=== PATIENT | male | born 1960 | race African-American/Black ===

== ENCOUNTER 2018-02-17 09:38 | Emergency (ER) | payer MEDICAID, OTHER ==
[~2018-02-17] VITALS: Ht 185.4 cm; Wt 81.6 kg
[~2018-02-17 09:38] MED LIST: ENAL-3; HYDR12.527; METF-490
[2018-02-17 10:05] VITALS: BP 131/83
[2018-02-17] MEDS ORDERED: KETOROLAC TROMETH 60MG/2ML VIAL IM ONE (11:45)
== END 2018-02-17 11:59 | disposition home or self-care (01) ==
LOC: ER 09:38
DX: S46.912A Strain of unspecified muscle, fascia and tendon at shoulder and upper arm level, left arm, initial encounter (principal); E11.9 Type 2 diabetes mellitus without complications; F17.210 Nicotine dependence, cigarettes, uncomplicated; I10 Essential (primary) hypertension; W19.XXXA Unspecified fall, initial encounter; Y93.89 Activity, other specified; Y92.89 Other specified places as the place of occurrence of the external cause; Y99.8 Other external cause status
CPT/HCPCS: 73030; 82962; 96372; 99284; J1885

== ENCOUNTER 2018-07-04 10:57 | Emergency (ER) | payer MEDICAID ==
[~2018-07-04] VITALS: Ht 185.4 cm; Wt 79.4 kg
[2018-07-04 11:12] VITALS: BP 135/94
== END 2018-07-04 11:50 | disposition home or self-care (01) ==
LOC: ER 10:57
DX: L02.413 Cutaneous abscess of right upper limb (principal); F17.210 Nicotine dependence, cigarettes, uncomplicated; E11.9 Type 2 diabetes mellitus without complications; I10 Essential (primary) hypertension; M19.90 Unspecified osteoarthritis, unspecified site

== ENCOUNTER 2018-07-31 12:50 | Emergency (ER) | payer MEDICAID ==
[~2018-07-31] VITALS: Ht 185.4 cm; Wt 77.1 kg
[2018-07-31] MEDS ORDERED: SODIUM CHLORIDE 0.9% 1,000 ML IV ONE (13:02)
[2018-07-31 14:04] LABS: Basophils # (auto) 0 uL; Basophils % (auto) 0.7 % (0.0-2.0); Eosinophils # (auto) 0 uL; Eosinophils % (auto) 0.6 % (0.0-7.0); Hematocrit 44.6 % (41.0-53.0); Hemoglobin 14.7 g/dL (13.5-17.5); Lymphocytes # (auto) 1.3 uL; Lymphocytes % (auto) 19.3 % (10.0-50.0); Mean Corpuscular Hemoglobin 31.4 pg (28.0-32.0); Mean Corpuscular Hgb Conc. 33.1 g/dL (32.0-36.0); Monocytes # (auto) 0.5 uL; Monocytes % (auto) 7.2 % (0.0-12.0); Neutrophils # (auto) 4.9 uL; Neutrophils % (auto) 72.2 % (37.0-80.0); Nucleated Red Blood Cells % 0.2 %; Platelet Count (auto) 189 10^3/uL (140-450); Red Cell Distribution Width 13.8 % (11.8-14.3); White Blood Cell 6.7 10^3/uL (4.4-10.8)
[2018-07-31 14:29] LABS: Alanine Aminotransferase 89 U/L (16-61); Albumin 3.6 g/dL (3.4-5.0); Anion Gap 12 (5-15); Aspartate Aminotransferase 53 U/L (15-37); BUN/Creatinine Ratio 10.8; Blood Urea Nitrogen 13 mg/dL (7-18); Calcium 8.8 mg/dL (8.5-10.1); Carbon Dioxide 23 mmol/L (21-32); Chloride 97 mmol/L (98-107); GFR African American 81 mL/min; GFR Non-African American 67 mL/min; Glucose 175 mg/dL (74-106); Potassium 3.6 mmol/L (3.5-5.1); Sodium 132 mmol/L (136-145)
[2018-07-31 14:33] LABS: Alkaline Phosphatase 81 U/L (45-117); Bilirubin, Total 0.9 mg/dL (0.2-1.0); Total Protein 7.5 g/dL (6.4-8.2)
[2018-07-31 15:57] VITALS: BP 161/86
== END 2018-07-31 16:08 | disposition home or self-care (01) ==
LOC: EDBD 12:50 → EDUNIT# 12:50 → ER 12:53
DX: R55 Syncope and collapse (principal); R07.9 Chest pain, unspecified; M19.90 Unspecified osteoarthritis, unspecified site; E11.9 Type 2 diabetes mellitus without complications; I10 Essential (primary) hypertension; F17.210 Nicotine dependence, cigarettes, uncomplicated; Z79.4 Long term (current) use of insulin; Z90.49 Acquired absence of other specified parts of digestive tract
CPT/HCPCS: 36415; 70450; 71045; 80053; 84484; 85025; 96360

== ENCOUNTER 2018-09-10 11:18 | Emergency (ER) | payer MEDICAID ==
[~2018-09-10] VITALS: Ht 185.4 cm; Wt 81.6 kg
[2018-09-10] MEDS ORDERED: KETOROLAC TROMETH 60MG/2ML VIAL IM ONE (15:00)
[2018-09-10 15:37] VITALS: BP 133/81
== END 2018-09-10 15:42 | disposition home or self-care (01) ==
LOC: ER 11:18
DX: S13.4XXA Sprain of ligaments of cervical spine, initial encounter (principal); F17.210 Nicotine dependence, cigarettes, uncomplicated; E11.9 Type 2 diabetes mellitus without complications; I10 Essential (primary) hypertension; M19.90 Unspecified osteoarthritis, unspecified site; V43.62XA Car passenger injured in collision with other type car in traffic accident, initial encounter; Y93.89 Activity, other specified; Y99.8 Other external cause status; Y92.410 Unspecified street and highway as the place of occurrence of the external cause
CPT/HCPCS: 72040; 96372; 99283; J1885

== ENCOUNTER 2019-09-29 07:38 | Emergency (ER) | payer MEDICAID ==
[~2019-09-29] VITALS: Ht 185.4 cm; Wt 81.6 kg
[~2019-09-29 07:38] MED LIST changes: -ENAL-3; +ENAL10TA2; -HYDR12.527; +HYDR12.55
[2019-09-29 07:57] VITALS: BP 120/71
== END 2019-09-29 09:41 | disposition home or self-care (01) ==
LOC: ER 07:42
DX: M62.838 Other muscle spasm (principal); M54.5 Low back pain; I10 Essential (primary) hypertension; E11.9 Type 2 diabetes mellitus without complications; F17.210 Nicotine dependence, cigarettes, uncomplicated; Z90.49 Acquired absence of other specified parts of digestive tract; Z79.899 Other long term (current) drug therapy; V49.9XXA Car occupant (driver) (passenger) injured in unspecified traffic accident, initial encounter; Y93.89 Activity, other specified; Y92.89 Other specified places as the place of occurrence of the external cause; Y99.8 Other external cause status
CPT/HCPCS: 72040; 72100

== ENCOUNTER 2019-12-05 09:59 | Inpatient (IN) | payer MEDICAID ==
[~2019-12-05] VITALS: Ht 185.4 cm; Wt 75.5 kg
[2019-12-05] MEDS ORDERED: FUROSEMIDE 20 MG/2 ML VIAL IV ONE (10:30)
[2019-12-05 10:57] LABS: Basophils # (auto) 0.1 10 ^3/uL (0-0.2); Basophils % (auto) 0.8 % (0.0-2.0); Eosinophils # (auto) 0.1 10 ^3/uL (0-0.8); Eosinophils % (auto) 2.3 % (0.0-7.0); Hematocrit 42.6 % (41.0-53.0); Hemoglobin 14.2 g/dL (13.5-17.5); Lymphocytes # (auto) 1.1 10 ^3/uL (0.4-5.4); Lymphocytes % (auto) 17.4 % (10.0-50.0); Mean Corpuscular Hemoglobin 31.7 pg (28.0-32.0); Mean Corpuscular Hgb Conc. 33.2 g/dL (32.0-36.0); Mean Corpuscular Volume 95.3 fL (80.0-100.0); Monocytes # (auto) 0.7 10 ^3/uL (0-1.3); Monocytes % (auto) 11.5 % (0.0-12.0); Neutrophils # (auto) 4.3 10 ^3/uL (1.6-8.6); Platelet Count (auto) 322 10^3/uL (140-450); Red Blood Cells 4.47 10^6/uL (4.5-5.90); Red Cell Distribution Width 14.3 % (11.8-14.3); White Blood Cell 6.3 10^3/uL (4.4-10.8)
[2019-12-05 11:11] LABS: Albumin 3.3 g/dL (3.4-5.0); Potassium 3.6 mmol/L (3.5-5.1)
[2019-12-05 11:14] LABS: BUN/Creatinine Ratio 8.9; Bilirubin, Total 0.5 mg/dL (0.2-1.0); Total Protein 7.6 g/dL (6.4-8.2)
[2019-12-05 12:15] LABS: Urine Bacteria NONE SEEN /hpf (None Seen); Urine Blood Negative /uL (Negative); Urine Specific Gravity 1.004 (1.001-1.035); Urine WBC <1 /hpf (0 - 3)
[2019-12-05] MEDS ORDERED: hydrALAZINE HCL 20 MG/ML VL IV PRN (15:00)
[2019-12-05] MEDS ORDERED: MORPHINE SULF INJ 2 MG/ML SYRINGE 1ML IV PRN (15:00)
[2019-12-05] MEDS ORDERED: ACETAMINOPHEN 325 MG TAB PO PRN (15:00)
[2019-12-05] MEDS ORDERED: PROMETHAZINE HCL 25 MG/ML 1ML IV PRN (15:00)
[2019-12-05] MEDS ORDERED: NITROGLYCERIN 0.4 MG SL TAB SL PRN (15:00)
[2019-12-05] MEDS ORDERED: DEXTROSE (50%) 50ML SYRG IV PRN (15:00)
[2019-12-05] MEDS: ACCU-CHEK COMFORT CURVE STRIP VI SCH ×2 (16:00→20:09)
[2019-12-05] MEDS: InsuLIN REG 1unit/0.01ml Soln (100units/ml) SC SCH ×2 (16:03→20:11)
[2019-12-05 16:26] VITALS: BP 149/98
[2019-12-05] MEDS ORDERED: NIFE1TAB36 PO (16:40)
[2019-12-05] MEDS ORDERED: PERCOT PO (16:40)
[2019-12-05] MEDS ORDERED: GABA300C10 PO (16:40)
[2019-12-05] MEDS ORDERED: metOLazone 5 MG TAB PO ONE (17:45)
[2019-12-05] MEDS: FUROSEMIDE 20 MG/2 ML VIAL IV SCH (18:35)
[2019-12-05] MEDS ORDERED: SIMV-13 PO (20:25)
[2019-12-05] MEDS ORDERED: ASP81EC PO (20:25)
[2019-12-05] MEDS ORDERED: TAMS0.4C36 PO (20:25)
[2019-12-05] MEDS ORDERED: CHOL20007 OR (20:25)
[2019-12-05] MEDS: HYDROcodone-ACET 5/325MG TAB PO PRN (21:07)
[2019-12-05 22:00] VITALS: BP 141/96
[2019-12-05] MEDS: POTASSIUM CHL 20 Meq TABLET PO SCH (22:12)
[2019-12-06] VITALS (7 sets, daily range): BP systolic 101–145; BP diastolic 70–108
[2019-12-06] MEDS: ACCU-CHEK COMFORT CURVE STRIP VI SCH ×6 (00:29→20:39)
[2019-12-06] MEDS: InsuLIN REG 1unit/0.01ml Soln (100units/ml) SC SCH ×6 (04:23→20:40)
[2019-12-06] MEDS: FUROSEMIDE 20 MG/2 ML VIAL IV SCH ×2 (06:06→17:56)
[2019-12-06] MEDS: HYDROcodone-ACET 5/325MG TAB PO PRN ×2 (06:12→20:05)
[2019-12-06 08:34] LABS: Basophils # (auto) 0.1 10 ^3/uL (0-0.2); Basophils % (auto) 1.2 % (0.0-2.0); Eosinophils # (auto) 0.1 10 ^3/uL (0-0.8); Eosinophils % (auto) 1.4 % (0.0-7.0); Hematocrit 47.1 % (41.0-53.0); Hemoglobin 16.2 g/dL (13.5-17.5); Lymphocytes # (auto) 1.3 10 ^3/uL (0.4-5.4); Mean Corpuscular Hemoglobin 32.4 pg (28.0-32.0); Mean Corpuscular Hgb Conc. 34.3 g/dL (32.0-36.0); Mean Corpuscular Volume 94.5 fL (80.0-100.0); Monocytes # (auto) 0.8 10 ^3/uL (0-1.3); Monocytes % (auto) 12.5 % (0.0-12.0); Neutrophils # (auto) 4.1 10 ^3/uL (1.6-8.6); Neutrophils % (auto) 64.9 % (37.0-80.0); Platelet Count (auto) 390 10^3/uL (140-450); Red Blood Cells 4.99 10^6/uL (4.5-5.90); Red Cell Distribution Width 14.5 % (11.8-14.3); White Blood Cell 6.3 10^3/uL (4.4-10.8)
[2019-12-06 08:51] LABS: Albumin 3.5 g/dL (3.4-5.0); Calcium 9.6 mg/dL (8.5-10.1); Potassium 3.6 mmol/L (3.5-5.1)
[2019-12-06 08:54] LABS: BUN/Creatinine Ratio 12.7; Bilirubin, Total 1.1 mg/dL (0.2-1.0); Total Protein 8.3 g/dL (6.4-8.2)
[2019-12-06] MEDS ORDERED: ADENOSINE 65 MG in GIVE UN-DILUTED 0 ML IV ONE (09:45)
[2019-12-06] MEDS ORDERED: ASPirin 81 mg TAB PO SCH (10:00)
[2019-12-06] MEDS ORDERED: PANTOPRAZOLE 40 MG TAB PO SCH (10:00)
[2019-12-06] MEDS ORDERED: ENOXAPARIN SOD 40 MG/0.4 ML SYRINGE SC SCH (10:00)
[2019-12-06] MEDS ORDERED: ENALAPRIL MALEATE 10 MG TAB PO SCH (10:00)
[2019-12-06] MEDS: POTASSIUM CHL 20 Meq TABLET PO SCH ×2 (10:41→22:08)
[2019-12-06] MEDS ORDERED: CARVEDILOL 3.125 MG TAB PO SCH (22:00)
[2019-12-06] MEDS ORDERED: ENAL10TA2 PO (22:45)
[2019-12-06] MEDS ORDERED: CAR3125T PO (22:45)
[2019-12-06] MEDS ORDERED: FURO1TAB31 PO (22:45)
[2019-12-06] MEDS ORDERED: SIMV-13 PO (22:45)
[2019-12-06] MEDS ORDERED: POTA10TA79 PO (22:45)
[2019-12-07] MEDS: InsuLIN REG 1unit/0.01ml Soln (100units/ml) SC SCH
[2019-12-07] MEDS: ACCU-CHEK COMFORT CURVE STRIP VI SCH (00:10)
== END 2019-12-07 00:36 | disposition home or self-care (01) | DRG 194 ==
LOC: ER 09:59 → TELE-WESTW 10:00
PROVIDERS: ADMIT Internal Medicine; ATTEND Internal Medicine
DX: I11.0 Hypertensive heart disease with heart failure (principal); E11.9 Type 2 diabetes mellitus without complications; I50.21 Acute systolic (congestive) heart failure; M19.90 Unspecified osteoarthritis, unspecified site; E78.5 Hyperlipidemia, unspecified; F17.210 Nicotine dependence, cigarettes, uncomplicated; J44.9 Chronic obstructive pulmonary disease, unspecified; N40.0 Benign prostatic hyperplasia without lower urinary tract symptoms; E55.9 Vitamin D deficiency, unspecified; Z90.49 Acquired absence of other specified parts of digestive tract; Z83.3 Family history of diabetes mellitus; Z82.49 Family history of ischemic heart disease and other diseases of the circulatory system; Z79.84 Long term (current) use of oral hypoglycemic drugs; Z79.899 Other long term (current) drug therapy; Z79.82 Long term (current) use of aspirin
CPT/HCPCS: 36415; 71046; 78452; 80053; 81001; 82962; 83880; 84484; 85025; 85379; 93005; 93017; 93306; 96374; 96375; G0378; J0153; J1815

== ENCOUNTER 2020-01-15 16:59 | Inpatient (IN) | payer MEDICAID ==
[~2020-01-15] VITALS: Ht 185.4 cm; Wt 74.0 kg
[~2020-01-15 16:59] MED LIST changes: +ASP81EC PO; +CAR3125T PO; +CHOL20007 OR; -ENAL10TA2; +ENAL10TA2 PO; +FURO1TAB31 PO; +GABA300C10 PO; -HYDR12.55; +PERCOT PO; +POTA10TA79 PO; +SIMV-13 PO; +TAMS0.4C36 PO
[2020-01-15 17:41] LABS: Basophils # (auto) 0 10 ^3/uL (0-0.2); Basophils % (auto) 0.5 % (0.0-2.0); Eosinophils # (auto) 0.1 10 ^3/uL (0-0.8); Eosinophils % (auto) 1.8 % (0.0-7.0); Hematocrit 45.9 % (41.0-53.0); Hemoglobin 15.2 g/dL (13.5-17.5); Lymphocytes # (auto) 1.7 10 ^3/uL (0.4-5.4); Lymphocytes % (auto) 39.3 % (10.0-50.0); Mean Corpuscular Hemoglobin 30.6 pg (28.0-32.0); Mean Corpuscular Hgb Conc. 33.1 g/dL (32.0-36.0); Mean Corpuscular Volume 92.5 fL (80.0-100.0); Monocytes # (auto) 0.4 10 ^3/uL (0-1.3); Monocytes % (auto) 9.5 % (0.0-12.0); Neutrophils # (auto) 2.1 10 ^3/uL (1.6-8.6); Neutrophils % (auto) 48.9 % (37.0-80.0); Nucleated Red Blood Cells % 0.2 %; Platelet Count (auto) 283 10^3/uL (140-450); Red Blood Cells 4.96 10^6/uL (4.5-5.90); Red Cell Distribution Width 13.6 % (11.8-14.3); White Blood Cell 4.3 10^3/uL (4.4-10.8)
[2020-01-15 17:57] LABS: Albumin 3.5 g/dL (3.4-5.0); Anion Gap 17 (5-15); Blood Urea Nitrogen 8 mg/dL (7-18); Calcium 8.5 mg/dL (8.5-10.1); Carbon Dioxide 19 mmol/L (21-32); Chloride 101 mmol/L (98-107); Glucose 175 mg/dL (74-106); Potassium 3.6 mmol/L (3.5-5.1); Sodium 137 mmol/L (136-145)
[2020-01-15 17:59] LABS: Alanine Aminotransferase 39 U/L (16-61); Aspartate Aminotransferase 46 U/L (15-37); BUN/Creatinine Ratio 8.7; GFR African American 109 mL/min; GFR Non-African American 90 mL/min
[2020-01-15 18:06] LABS: Alkaline Phosphatase 63 U/L (45-117); Bilirubin, Total 1.1 mg/dL (0.2-1.0); Total Protein 7.6 g/dL (6.4-8.2)
[2020-01-15 20:44] LABS: INR 1.04 (0.9-1.15); Partial Thromboplastin Time 28.2 sec (23.64-32.05)
[2020-01-15] MEDS ORDERED: ONDANSETRON HCL 4 MG/2 ML VIAL IV PRN (21:15)
[2020-01-15] MEDS ORDERED: NITROGLYCERIN 0.4 MG SL TAB SL PRN (21:15)
[2020-01-15] MEDS ORDERED: MORPHINE SULF INJ 2 MG/ML SYRINGE 1ML IV PRN (21:15)
[2020-01-15] MEDS ORDERED: DEXTROSE (50%) 50ML SYRG IV PRN (21:15)
[2020-01-15] MEDS ORDERED: ACETAMINOPHEN 325 MG TAB PO PRN (21:15)
[2020-01-15] MEDS ORDERED: TEMAZEPAM 15 MG CAP PO PRN (21:15)
[2020-01-15 22:00] VITALS: BP 136/90
--- NOTE | 2020-01-15 22:05 | NUR ---
Telemetry admit from ER KYLEE JACOME admitted to Telemetry unit. Patient oriented to Patti Catherine, primary RN, unit, room, bed, and unit policies regarding patient care. Patient now on continuous telemetry monitoring, tele box # 32 and telemetry reading on arrival to unit is sinus tachycardia HR 110. Patient weighed by bedscale and encouraged to call if they need something. All questions and concerns addressed, patient verbalized understanding. Patient is alert and orientedx4. Patient is on room air. Respirations even and unlabored. Patient has no S/S of distress/SOB or pain. Will continue to monitor patient Q1HR and PRN.
[2020-01-15 22:20] VITALS: BP 136/90
[2020-01-15] MEDS: CARVEDILOL 3.125 MG TAB PO SCH (22:38)
[2020-01-15] MEDS: FAMOTIDINE 20 MG TAB PO SCH (22:39)
[2020-01-15] MEDS: ATORVASTATIN 20 MG TAB PO SCH (22:39)
[2020-01-15] MEDS: ACCU-CHEK COMFORT CURVE STRIP VI SCH (22:47)
[2020-01-15] MEDS: InsuLIN REG 1unit/0.01ml Soln (100units/ml) SC SCH (22:48)
--- NOTE | 2020-01-15 23:22 | NUR ---
12-lead EKG performed per MD order to perform 12-lead EKG every 3 hours. HR is 100 and results indicate sinus tachycardia, probably left ventricular hypertrophy, nonspecific T abnormalities, and borderline prolonged QT interval. Results are similar to 12-lead EKG performed on 01/15/20 at 1704 showing HR of 108 and sinus tachycardia, possible left atrial enlargement, left ventricular hypertrophy, nonspecific ST and T wave abnormality. Patient asymptomatic at this time. No complaints of chest pain or shortness of breath.
[2020-01-16] VITALS (7 sets, daily range): BP systolic 124–175; BP diastolic 80–104
--- NOTE | 2020-01-16 00:05 | NUR ---
Hospitalist paged regarding clarification of order to perform 12-lead EKG every 3 hours and to notify that patient has no cardiology consult despite being admitted for unstable angina. Awaiting callback at this time.
--- NOTE | 2020-01-16 00:42 | NUR ---
Received callback from COMFORT Recinos, regarding clarification of order to perform 12-lead EKG every 3 hours and to notify that patient has no cardiology consult despite being admitted for unstable angina. [employer], notified that results of 12-lead EKG performed on 01/15/20 at 2322 is similar to results obtained from 12-lead EKG performed on 01/15/20 at 1704. New orders received: discontinue order to perform 12-lead EKG every [address] cardiology consult for chest pain.
[2020-01-16 05:50] LABS: Basophils # (auto) 0 10 ^3/uL (0-0.2); Eosinophils # (auto) 0.2 10 ^3/uL (0-0.8); Eosinophils % (auto) 3.9 % (0.0-7.0); Hematocrit 42.5 % (41.0-53.0); Hemoglobin 14.3 g/dL (13.5-17.5); Lymphocytes % (auto) 45.6 % (10.0-50.0); Mean Corpuscular Hgb Conc. 33.7 g/dL (32.0-36.0); Mean Corpuscular Volume 91.9 fL (80.0-100.0); Monocytes # (auto) 0.6 10 ^3/uL (0-1.3); Monocytes % (auto) 14.4 % (0.0-12.0); Neutrophils # (auto) 1.5 10 ^3/uL (1.6-8.6); Neutrophils % (auto) 35.1 % (37.0-80.0); Platelet Count (auto) 248 10^3/uL (140-450); Red Blood Cells 4.62 10^6/uL (4.5-5.90); Red Cell Distribution Width 13.7 % (11.8-14.3); White Blood Cell 4.4 10^3/uL (4.4-10.8)
[2020-01-16 06:11] LABS: BUN/Creatinine Ratio 10.7; Calcium 8.3 mg/dL (8.5-10.1); Potassium 3.7 mmol/L (3.5-5.1)
[2020-01-16] MEDS: FUROSEMIDE 100 MG/10ML VIAL IV SCH ×2 (06:25→17:05)
--- NOTE | 2020-01-16 06:35 | NUR ---
MRSA swab sent.
[2020-01-16] MEDS: ACCU-CHEK COMFORT CURVE STRIP VI SCH ×4 (06:43→22:14)
[2020-01-16] MEDS: InsuLIN REG 1unit/0.01ml Soln (100units/ml) SC SCH ×4 (06:44→22:17)
--- NOTE | 2020-01-16 07:00 | NUR ---
CLOSING NOTE Patient is on room air. Respirations even and unlabored. Patient has no S/S of distress/SOB or pain.
--- NOTE | 2020-01-16 08:05 | NUR ---
Opening note Assumed care of patient. Patient alert and orientated x4. No signs of distress noted. Patient denies any pain at this time. POC discussed. Patient verbalized understanding. Bed in lowest position and locked. Side rails up x2. Will continue to monitor.
[2020-01-16] MEDS: CARVEDILOL 3.125 MG TAB PO SCH ×3 (08:33→17:06)
[2020-01-16] MEDS: FAMOTIDINE 20 MG TAB PO SCH ×2 (09:17→22:05)
[2020-01-16] MEDS: ASPirin 81 mg TAB PO SCH (09:18)
[2020-01-16] MEDS: ENALAPRIL MALEATE 10 MG TAB PO SCH (09:18)
--- NOTE | 2020-01-16 11:42 | NUR ---
Page to Dr. Headley to Dr. Cummings at this time. Patient's blood pressure is 175/80. Awaiting callback.
--- NOTE | 2020-01-16 13:13 | NUR ---
Cardiology Consult Dr. Ahumada at bedside discussing plan of care with patient and Dr. Cummings.
[2020-01-16] MEDS: HYDROcodone-ACET 5/325MG TAB PO PRN ×2 (13:19→19:30)
[2020-01-16 14:19] LABS: Amphetamine Screen, Urine NEGATIVE (NEGATIVE); Barbiturate Scree,Urine NEGATIVE (NEGATIVE); Benzodiazephine Screen, Urine NEGATIVE (NEGATIVE); Cannabinoid Screen, Urine POSITIVE (NEGATIVE); Cocaine Screen, Urine NEGATIVE (NEGATIVE); Opiate Scree,Urine NEGATIVE (NEGATIVE); Phencyclidine Screen, Urine NEGATIVE (NEGATIVE)
--- NOTE | 2020-01-16 16:38 | NUR ---
Call to Dr. Cummings Call to Dr. Cummings at this time. Patient's diastolic blood pressure is still elevated. Left a message for at this time. Awaiting callback.
[2020-01-16] MEDS ORDERED: TAMSULOSIN HYDROCHLORIDE 0.4 MG CAP PO SCH (18:00)
--- NOTE | 2020-01-16 19:10 | NUR ---
Closing Shift Note Patient resting in bed. No distress noted. Report given. Will endorse care to the cnc machinist 2nd shift RN.
--- NOTE | 2020-01-16 19:30 | NUR ---
Opening Shift Note Assumed care of patient, awake and alert. No S/S of distress/SOB. Patient is on room air. Respirations even and unlabored. Patient reports 7/10 pain in his right hip. Patient states he has chronic pain and takes Percocet at home for it. Patient educated he does not have pain medication available for severe pain but he can receive a [place] 5/325 mg tablet for moderate pain and the doctor will be contacted for pain medication for severe pain. Patient agrees to take [place] 5/325 mg tablet for pain and verbalized understanding. Instructed on POC and to call for assist PRN, will continue to monitor for changes Q1hr and PRN.
--- NOTE | 2020-01-16 20:05 | NUR ---
Hospitalist paged regarding patient requesting pain medication for severe pain. Awaiting callback at this time.
--- NOTE | 2020-01-16 20:33 | NUR ---
Received callback from [facility] Recinos, regarding patient requesting pain medication for severe pain. [facility], notified that the patient has chronic pain in his right hip and takes Percocet 5/325 mg 1 tablet QID at home per patient's medication reconciliation. No new orders received. Patient has no complaints of pain.
[2020-01-16] MEDS: ATORVASTATIN 20 MG TAB PO SCH (22:05)
--- NOTE | 2020-01-16 22:20 | NUR ---
Patient reports 5/10 pain in his right hip. Heat pack applied to patient's right hip. Will continue to monitor.
--- NOTE | 2020-01-16 23:20 | NUR ---
Patient has no complaints of pain.
[2020-01-17] MEDS: HYDROcodone-ACET 5/325MG TAB PO PRN (04:14)
--- NOTE | 2020-01-17 04:14 | NUR ---
Patient reports 7/10 pain in his right hip. Patient educated he does not have pain medication available for severe pain but he can receive a [place] 5/325 mg tablet for moderate pain and the doctor will be contacted for pain medication for severe pain. Patient agrees to take [place] 5/325 mg tablet for pain and verbalized understanding.
--- NOTE | 2020-01-17 05:00 | NUR ---
Hospitalist paged regarding patient requesting pain medication for severe pain. Awaiting callback at this time.
--- NOTE | 2020-01-17 05:14 | NUR ---
Patient has no complaints of pain.
[2020-01-17 05:30] VITALS: BP 121/97
--- NOTE | 2020-01-17 05:50 | NUR ---
Received callback from [facility] Recinos, regarding patient requesting pain medication for severe pain. [facility], notified that the patient has chronic pain in his right hip and takes Percocet 5/325 mg 1 tablet QID at home per patient's medication reconciliation. New order received: Change pain scale for PRN medication [place] 5/325 mg PO tablet Q4HR from 4-6 pain to 7-10 pain.
[2020-01-17 06:23] LABS: Calcium 9.1 mg/dL (8.5-10.1); Potassium 3.6 mmol/L (3.5-5.1)
[2020-01-17] MEDS: FUROSEMIDE 100 MG/10ML VIAL IV SCH (06:23)
[2020-01-17 06:25] LABS: BUN/Creatinine Ratio 11.3
[2020-01-17] MEDS: ACCU-CHEK COMFORT CURVE STRIP VI SCH ×2 (06:33→11:21)
[2020-01-17] MEDS: InsuLIN REG 1unit/0.01ml Soln (100units/ml) SC SCH ×2 (06:33→11:44)
--- NOTE | 2020-01-17 07:00 | NUR ---
CLOSING NOTE Patient is on room air. Respirations even and unlabored. Patient has no S/S of distress/SOB or pain.
--- NOTE | 2020-01-17 07:30 | NUR ---
Opening Shift Note Assuming care of patient at this time. Patient is resting in bed with eyes closed. Patient shows no signs or symptoms of distress or shortness of breath. Bed is locked and lowered with side rails up x2. Will instruct patient on the plan of care for today and to call for assistance as needed once patient is awake. Call light within reach. Will continue to round hourly and as needed.
[2020-01-17] MEDS ORDERED: HYDROcodone-ACET 5/325MG TAB PO PRN (08:14)
[2020-01-17 08:53] VITALS: BP 151/97
[2020-01-17] MEDS: ENALAPRIL MALEATE 10 MG TAB PO SCH (09:26)
[2020-01-17] MEDS: CARVEDILOL 3.125 MG TAB PO SCH (09:26)
[2020-01-17] MEDS: ASPirin 81 mg TAB PO SCH (09:27)
[2020-01-17] MEDS: FAMOTIDINE 20 MG TAB PO SCH (09:27)
[2020-01-17 12:30] VITALS: BP 134/92
[2020-01-17 13:49] VITALS: BP 134/92
--- NOTE | 2020-01-17 15:33 | NUR ---
Discharge Discharge instructions given as ordered. Encourage to follow up with PMD as instructed. All questions and concerns addressed. Patient verbalized understanding. Medication reconciliation form completed and copy given to patient. IV removed with catheter intact, pressure dressing applied. Telemetry unit returned to ICU. Patient ambulated with all personal belongings, accompanied by staff. Patient wishes to wait in lobby for ride. No distress noted at time of departure.
[2020-01-17] MEDS ORDERED: CAR3125T PO (17:08)
[2020-01-17] MEDS ORDERED: FURO1TAB31 PO (17:08)
[2020-01-17] MEDS ORDERED: SPIR25TA88 PO (17:08)
== END 2020-01-17 15:20 | disposition home or self-care (01) | DRG 194 ==
LOC: EDBD 16:59 → ER 16:59 → TELE-CENTR 17:00
PROVIDERS: ADMIT Nurse Practitioner; ATTEND Hospitalist
DX: I11.0 Hypertensive heart disease with heart failure (principal); D70.9 Neutropenia, unspecified; I42.8 Other cardiomyopathies; I50.82 Biventricular heart failure; I50.43 Acute on chronic combined systolic (congestive) and diastolic (congestive) heart failure; E11.9 Type 2 diabetes mellitus without complications; E78.5 Hyperlipidemia, unspecified; Z83.3 Family history of diabetes mellitus
CPT/HCPCS: 36415; 71045; 80048; 80053; 80307; 82962; 83735; 83880; 84443; 84484; 85025; 85610; 85730; 87081; 93005; G0378; J1815

== ENCOUNTER 2020-02-21 14:04 | Emergency (ER) | payer MEDICAID ==
[~2020-02-21] VITALS: Ht 185.4 cm; Wt 79.4 kg
[~2020-02-21 14:04] MED LIST changes: -ASP81EC PO; +ASPI-394 PO; +ENAL10TA13 PO; -ENAL10TA2 PO; +POTA10TA32 PO; -POTA10TA79 PO; +SPIR25TA88 PO
[2020-02-21 14:50] VITALS: BP 122/88
== END 2020-02-21 15:27 | disposition home or self-care (01) ==
LOC: ER 14:04
DX: H60.91 Unspecified otitis externa, right ear (principal); M19.90 Unspecified osteoarthritis, unspecified site; E11.9 Type 2 diabetes mellitus without complications; E78.5 Hyperlipidemia, unspecified; I10 Essential (primary) hypertension; F17.210 Nicotine dependence, cigarettes, uncomplicated

== ENCOUNTER 2020-08-03 15:27 | Emergency (ER) | payer MEDICAID ==
[~2020-08-03] VITALS: Ht 182.9 cm; Wt 81.6 kg
[2020-08-03] MEDS ORDERED: SODIUM CHLORIDE 0.9% 500 ML IVB ONE (15:45)
[2020-08-03 17:21] LABS: Basophils # (auto) 0 10 ^3/uL (0-0.2); Basophils % (auto) 0.6 % (0.0-2.0); Eosinophils # (auto) 0.1 10 ^3/uL (0-0.8); Eosinophils % (auto) 2.3 % (0.0-7.0); Hematocrit 42.8 % (41.0-53.0); Hemoglobin 14.2 g/dL (13.5-17.5); Lymphocytes % (auto) 24.3 % (10.0-50.0); Mean Corpuscular Hgb Conc. 33.3 g/dL (32.0-36.0); Mean Corpuscular Volume 96.2 fL (80.0-100.0); Monocytes # (auto) 0.4 10 ^3/uL (0-1.3); Monocytes % (auto) 8.9 % (0.0-12.0); Neutrophils # (auto) 2.6 10 ^3/uL (1.6-8.6); Neutrophils % (auto) 63.9 % (37.0-80.0); Platelet Count (auto) 303 10^3/uL (140-450); Red Blood Cells 4.45 10^6/uL (4.5-5.90); Red Cell Distribution Width 12.7 % (11.8-14.3); White Blood Cell 4.1 10^3/uL (4.4-10.8)
[2020-08-03 17:32] LABS: Albumin 3.5 g/dL (3.4-5.0); Amylase 111 U/L (25-115); Anion Gap 7 (5-15); Blood Urea Nitrogen 12 mg/dL (7-18); Calcium 8.9 mg/dL (8.5-10.1); Carbon Dioxide 27 mmol/L (21-32); Chloride 100 mmol/L (98-107); Glucose 221 mg/dL (74-106); Potassium 3.6 mmol/L (3.5-5.1); Sodium 134 mmol/L (136-145)
[2020-08-03 17:39] LABS: Alanine Aminotransferase 33 U/L (16-61); Alkaline Phosphatase 65 U/L (45-117); Aspartate Aminotransferase 20 U/L (15-37); BUN/Creatinine Ratio 9.8; Bilirubin, Total 0.7 mg/dL (0.2-1.0); GFR African American 79 mL/min; GFR Non-African American 65 mL/min; Lipase 102 U/L (73-393); Total Protein 7.2 g/dL (6.4-8.2)
[2020-08-03] MEDS ORDERED: IOHEXOL 350 MG/ML 100ML IJ ONE (18:05)
[2020-08-03 19:15] LABS: Urine Bacteria NONE SEEN /hpf (None Seen); Urine Blood Negative /uL (Negative); Urine Hyaline Cast MOD /lpf (0 - 2); Urine Mucus FEW (None Seen); Urine Specific Gravity 1.007 (1.001-1.035); Urine WBC 1 /hpf (0 - 3)
[2020-08-03 19:39] VITALS: BP 102/71
== END 2020-08-03 19:57 | disposition home or self-care (01) ==
LOC: EDBD 15:27 → ER 15:29
DX: R10.9 Unspecified abdominal pain (principal); R55 Syncope and collapse; E11.9 Type 2 diabetes mellitus without complications; E78.5 Hyperlipidemia, unspecified; I10 Essential (primary) hypertension; F17.210 Nicotine dependence, cigarettes, uncomplicated; Z79.899 Other long term (current) drug therapy; Z79.82 Long term (current) use of aspirin
CPT/HCPCS: 36415; 71260; 74177; 80053; 80320; 81001; 82150; 83690; 84484; 85025; 96360; 99285; J7030; Q9967

== ENCOUNTER 2020-12-09 00:14 | Emergency (ER) | payer MEDICAID ==
[~2020-12-09] VITALS: Ht 185.4 cm; Wt 79.4 kg
[~2020-12-09 00:14] MED LIST changes: +SPIR25TA PO; -SPIR25TA88 PO
[2020-12-09 01:26] LABS: Basophils # (auto) 0.1 10 ^3/uL (0-0.2); Basophils % (auto) 0.9 % (0.0-2.0); Eosinophils # (auto) 0.2 10 ^3/uL (0-0.8); Eosinophils % (auto) 2.5 % (0.0-7.0); Hematocrit 42.2 % (41.0-53.0); Hemoglobin 14.6 g/dL (13.5-17.5); Lymphocytes # (auto) 2.7 10 ^3/uL (0.4-5.4); Lymphocytes % (auto) 38.1 % (10.0-50.0); Mean Corpuscular Hemoglobin 32.8 pg (28.0-32.0); Mean Corpuscular Hgb Conc. 34.6 g/dL (32.0-36.0); Mean Corpuscular Volume 94.7 fL (80.0-100.0); Monocytes # (auto) 0.4 10 ^3/uL (0-1.3); Monocytes % (auto) 5.3 % (0.0-12.0); Neutrophils # (auto) 3.7 10 ^3/uL (1.6-8.6); Neutrophils % (auto) 53.2 % (37.0-80.0); Nucleated Red Blood Cells % 0.1 %; Platelet Count (auto) 354 10^3/uL (140-450); Red Blood Cells 4.46 10^6/uL (4.5-5.90)
[2020-12-09 01:50] LABS: Alanine Aminotransferase 24 U/L (16-61); Anion Gap 15 (5-15); Aspartate Aminotransferase 10 U/L (15-37); BUN/Creatinine Ratio 6.4; Blood Urea Nitrogen 8 mg/dL (7-18); Calcium 8.6 mg/dL (8.5-10.1); Carbon Dioxide 24 mmol/L (21-32); Chloride 95 mmol/L (98-107); GFR African American 76 mL/min; GFR Non-African American 63 mL/min; Glucose 140 mg/dL (74-106); Potassium 3.6 mmol/L (3.5-5.1); Sodium 134 mmol/L (136-145)
[2020-12-09 01:54] LABS: Alkaline Phosphatase 63 U/L (45-117); Bilirubin, Total 0.5 mg/dL (0.2-1.0); Total Protein 8.3 g/dL (6.4-8.2)
[2020-12-09 02:20] LABS: Lactic Acid w/Reflex 4.8 mmol/L (0.4-2.0)
[2020-12-09] MEDS ORDERED: SODIUM CHLORIDE 0.9% 500 ML IV ONE (03:15)
[2020-12-09 03:44] LABS: Urine Bacteria NONE SEEN /hpf (None Seen); Urine Blood Negative /uL (Negative); Urine Hyaline Cast MANY /lpf (0 - 2); Urine Mucus FEW (None Seen); Urine Specific Gravity 1.011 (1.001-1.035); Urine WBC <1 /hpf (0 - 3)
[2020-12-09 06:00] VITALS: BP 114/75
== END 2020-12-09 06:54 | disposition home or self-care (01) ==
LOC: EDBD 00:14 → ER 00:14
DX: K52.9 Noninfective gastroenteritis and colitis, unspecified (principal); R11.2 Nausea with vomiting, unspecified; I48.91 Unspecified atrial fibrillation; M19.90 Unspecified osteoarthritis, unspecified site; I11.0 Hypertensive heart disease with heart failure; I50.9 Heart failure, unspecified; E11.9 Type 2 diabetes mellitus without complications; E78.5 Hyperlipidemia, unspecified; F17.210 Nicotine dependence, cigarettes, uncomplicated; F10.20 Alcohol dependence, uncomplicated; Z90.89 Acquired absence of other organs; Z87.11 Personal history of peptic ulcer disease; Z79.899 Other long term (current) drug therapy; Y90.2 Blood alcohol level of 40-59 mg/100 ml
CPT/HCPCS: 36415; 71045; 74176; 80053; 80320; 81001; 83605; 83880; 84484; 85025; 93005; 96360

== ENCOUNTER 2020-12-15 05:08 | Emergency (ER) | payer MEDICAID ==
[~2020-12-15] VITALS: Ht 185.4 cm; Wt 79.4 kg
[2020-12-15 06:45] VITALS: BP 137/89
[2020-12-15] MEDS ORDERED: LIDOCAINE 1% HCL (LOCAL ANESTH.) INJ 20ML MDV IJ ONE (07:15)
== END 2020-12-15 08:00 | disposition home or self-care (01) ==
LOC: ER 05:08
DX: L02.411 Cutaneous abscess of right axilla (principal); I48.91 Unspecified atrial fibrillation; M19.90 Unspecified osteoarthritis, unspecified site; I11.0 Hypertensive heart disease with heart failure; I50.9 Heart failure, unspecified; E11.9 Type 2 diabetes mellitus without complications; F17.210 Nicotine dependence, cigarettes, uncomplicated; F10.20 Alcohol dependence, uncomplicated; Z87.11 Personal history of peptic ulcer disease; Z79.899 Other long term (current) drug therapy; Z79.82 Long term (current) use of aspirin; Y90.9 Presence of alcohol in blood, level not specified
CPT/HCPCS: 10060; 99283; J2001

== ENCOUNTER 2020-12-20 06:30 | Emergency (ER) | payer MEDICAID ==
[~2020-12-20] VITALS: Ht 185.4 cm; Wt 79.4 kg
[2020-12-20 06:45] VITALS: BP 140/78
== END 2020-12-20 07:11 | disposition home or self-care (01) ==
LOC: ER 06:30
DX: I11.0 Hypertensive heart disease with heart failure (principal); I50.9 Heart failure, unspecified; E11.9 Type 2 diabetes mellitus without complications; E78.5 Hyperlipidemia, unspecified; F17.210 Nicotine dependence, cigarettes, uncomplicated; F12.10 Cannabis abuse, uncomplicated; Z48.01 Encounter for change or removal of surgical wound dressing

== ENCOUNTER 2021-08-26 20:54 | Emergency (ER) | payer MEDICAID ==
[~2021-08-26] VITALS: Ht 185.4 cm; Wt 79.4 kg
[2021-08-26] MEDS ORDERED: D5W/SOD CHL 0.45% 1,000 ML IV ONE (21:15)
[2021-08-26 22:19] LABS: Basophils # (auto) 0.1 10 ^3/uL (0-0.2); Eosinophils # (auto) 0.1 10 ^3/uL (0-0.8); Eosinophils % (auto) 1.6 % (0.0-7.0); Hematocrit 43.5 % (41.0-53.0); Hemoglobin 14.4 g/dL (13.5-17.5); Lymphocytes # (auto) 2.1 10 ^3/uL (0.4-5.4); Lymphocytes % (auto) 36.9 % (10.0-50.0); Mean Corpuscular Hemoglobin 31.7 pg (28.0-32.0); Mean Corpuscular Hgb Conc. 33.2 g/dL (32.0-36.0); Mean Corpuscular Volume 95.7 fL (80.0-100.0); Monocytes # (auto) 0.5 10 ^3/uL (0-1.3); Monocytes % (auto) 8.8 % (0.0-12.0); Neutrophils % (auto) 51.7 % (37.0-80.0); Nucleated Red Blood Cells % 0.2 %; Red Blood Cells 4.55 10^6/uL (4.5-5.90); Red Cell Distribution Width 13.6 % (11.8-14.3); White Blood Cell 5.7 10^3/uL (4.4-10.8)
[2021-08-26 22:38] LABS: Albumin 3.7 g/dL (3.4-5.0); Calcium 9.4 mg/dL (8.5-10.1); Magnesium 2.7 mg/dL (1.6-2.6); Potassium 4.3 mmol/L (3.5-5.1)
[2021-08-26 22:44] LABS: BUN/Creatinine Ratio 10.8; Bilirubin, Total 0.5 mg/dL (0.2-1.0); Total Protein 8.2 g/dL (6.4-8.2)
[2021-08-27 02:28] LABS: Urine Bacteria NONE SEEN /hpf (None Seen); Urine Blood Negative /uL (Negative); Urine Hyaline Cast FEW /lpf (0 - 2); Urine Specific Gravity 1.008 (1.001-1.035); Urine WBC <1 /hpf (0 - 3)
[2021-08-27 05:00] VITALS: BP 150/93
== END 2021-08-27 04:50 | disposition home or self-care (01) ==
LOC: ER 20:54 → EDBD 20:54 → ER 08-27 04:50
DX: R53.1 Weakness (principal); I11.0 Hypertensive heart disease with heart failure; I50.9 Heart failure, unspecified; E11.649 Type 2 diabetes mellitus with hypoglycemia without coma; I48.91 Unspecified atrial fibrillation; E78.5 Hyperlipidemia, unspecified; F17.210 Nicotine dependence, cigarettes, uncomplicated; Z90.49 Acquired absence of other specified parts of digestive tract; Z79.82 Long term (current) use of aspirin; Z79.899 Other long term (current) drug therapy; Z20.822 Contact with and (suspected) exposure to COVID-19
CPT/HCPCS: 36415; 71045; 80053; 81001; 82962; 83735; 84484; 85025; 87426; 93005; 93971; 96360; 96361

== ENCOUNTER 2021-10-02 07:36 | Emergency (ER) | payer MEDICAID, OTHER ==
[~2021-10-02] VITALS: Ht 185.4 cm; Wt 79.4 kg
[2021-10-02 08:06] VITALS: BP 140/88
[2021-10-02] MEDS ORDERED: MELO7.5T9 PO (08:40)
== END 2021-10-02 08:54 | disposition home or self-care (01) ==
LOC: ER 07:36
DX: S46.912A Strain of unspecified muscle, fascia and tendon at shoulder and upper arm level, left arm, initial encounter (principal); S16.1XXA Strain of muscle, fascia and tendon at neck level, initial encounter; M47.812 Spondylosis without myelopathy or radiculopathy, cervical region; I11.0 Hypertensive heart disease with heart failure; I50.9 Heart failure, unspecified; E78.5 Hyperlipidemia, unspecified; F17.210 Nicotine dependence, cigarettes, uncomplicated; F12.10 Cannabis abuse, uncomplicated; V43.52XA Car driver injured in collision with other type car in traffic accident, initial encounter; Y93.89 Activity, other specified; Y92.89 Other specified places as the place of occurrence of the external cause; Y99.8 Other external cause status
CPT/HCPCS: 72040

== ENCOUNTER 2023-03-04 21:37 | Emergency (ER) | payer MEDICAID ==
[~2023-03-04] VITALS: Ht 185.4 cm; Wt 74.0 kg
[~2023-03-04 21:37] MED LIST changes: -ENAL10TA13 PO; +ENAL1TAB47 PO; +GABA-1250 PO; -GABA300C10 PO; +MELO7.5T9 PO; +POTA-228 PO; -POTA10TA32 PO; -SIMV-13 PO; +SIMV40TA18 PO
[2023-03-04] MEDS ORDERED: LIDOCAINE 1% HCL (LOCAL ANESTH.) INJ 20ML MDV ID ONE (23:00)
[2023-03-04] MEDS ORDERED: HYDROcodone-ACET 10/325MG TAB PO ONE (23:00)
[2023-03-05 02:38] VITALS: BP 140/92
== END 2023-03-05 03:10 | disposition short-term general hospital (02) ==
LOC: ER 21:37
DX: S02.85XA Fracture of orbit, unspecified, initial encounter for closed fracture (principal); S01.111A Laceration without foreign body of right eyelid and periocular area, initial encounter; I48.91 Unspecified atrial fibrillation; M19.90 Unspecified osteoarthritis, unspecified site; I11.0 Hypertensive heart disease with heart failure; I50.9 Heart failure, unspecified; E11.9 Type 2 diabetes mellitus without complications; E78.5 Hyperlipidemia, unspecified; Z87.11 Personal history of peptic ulcer disease; F17.210 Nicotine dependence, cigarettes, uncomplicated; F12.10 Cannabis abuse, uncomplicated; F10.20 Alcohol dependence, uncomplicated; Y90.9 Presence of alcohol in blood, level not specified; Y04.2XXA Assault by strike against or bumped into by another person, initial encounter; Y93.89 Activity, other specified; Y92.89 Other specified places as the place of occurrence of the external cause; Y99.8 Other external cause status
CPT/HCPCS: 70450; 70480

== ENCOUNTER 2023-11-15 15:13 | Emergency (ER) | payer MEDICAID ==
[~2023-11-15] VITALS: Ht 185.4 cm; Wt 77.3 kg
[2023-11-15 16:01] VITALS: O2SAT 95
[2023-11-15 16:22] LABS: Basophils # (auto) 0.1 10 ^3/uL (0-0.2); Basophils % (auto) 0.9 % (0.0-2.0); Eosinophils # (auto) 0.2 10 ^3/uL (0-0.8); Eosinophils % (auto) 1.6 % (0.0-7.0); Hematocrit 41.1 % (41.0-53.0); Hemoglobin 13.8 g/dL (13.5-17.5); Lymphocytes # (auto) 1.8 10 ^3/uL (0.4-5.4); Lymphocytes % (auto) 19.1 % (10.0-50.0); Mean Corpuscular Hemoglobin 32.3 pg (28.0-32.0); Mean Corpuscular Hgb Conc. 33.6 g/dL (32.0-36.0); Mean Corpuscular Volume 95.9 fL (80.0-100.0); Monocytes # (auto) 0.9 10 ^3/uL (0-1.3); Monocytes % (auto) 9.3 % (0.0-12.0); Neutrophils # (auto) 6.7 10 ^3/uL (1.6-8.6); Neutrophils % (auto) 69.1 % (37.0-80.0); Nucleated Red Blood Cells % 0.1 %; Red Blood Cells 4.29 10^6/uL (4.5-5.90); Red Cell Distribution Width 12.9 % (11.8-14.3); White Blood Cell 9.7 10^3/uL (4.4-10.8)
[2023-11-15 16:44] LABS: Chloride 90 mmol/L (98-107); Potassium 3.7 mmol/L (3.5-5.1); Sodium 128 mmol/L (136-145)
[2023-11-15 16:45] LABS: Anion Gap 9 (5-15); Carbon Dioxide 29 mmol/L (20-30)
[2023-11-15 16:50] LABS: BUN/Creatinine Ratio 6.8 (10.0-20.0); Blood Urea Nitrogen 7 mg/dL (9-23); Glucose 159 mg/dL (74-106)
[2023-11-15] MEDS: SODIUM CHLORIDE 0.9% 1,000 ML IV ONE (17:00)
[2023-11-15] MEDS: SODIUM CHLORIDE 0.9% 500 ML IVB ONE (17:00)
[2023-11-15] MEDS ORDERED: MECL25CH85 PO (19:27)
[2023-11-15 20:00] VITALS: BP 114/70; PULSE 93; RESP 19; O2SAT 96
== END 2023-11-15 20:05 | disposition home or self-care (01) ==
LOC: EDBD 15:13 → ER 15:13
DX: R55 Syncope and collapse (principal); H81.13 Benign paroxysmal vertigo, bilateral; E87.1 Hypo-osmolality and hyponatremia; I11.0 Hypertensive heart disease with heart failure; I50.9 Heart failure, unspecified; E11.9 Type 2 diabetes mellitus without complications; E78.5 Hyperlipidemia, unspecified; F17.210 Nicotine dependence, cigarettes, uncomplicated; F12.10 Cannabis abuse, uncomplicated
CPT/HCPCS: 36415; 71046; 80048; 83735; 84484; 85025; 93005; 96360; 96361; 99285; J7030; J7040; 82962

== ENCOUNTER 2024-04-25 21:47 | Emergency (ER) | payer MEDICAID ==
[~2024-04-25] VITALS: Ht 185.4 cm; Wt 80.0 kg
[~2024-04-25 21:47] MED LIST changes: -CAR3125T PO; +CARV-214 PO; +MECL25CH85 PO
[2024-04-25] MEDS: ACETAMINOPHEN IV 1000 MG/100ML (10MG/ML) IV STA (22:08)
[2024-04-25] MEDS: ONDANSETRON HCL 4 MG/2 ML VIAL IV ONE (22:15)
[2024-04-25 22:33] LABS: Basophils # (auto) 0 10 ^3/uL (0-0.2); Basophils % (auto) 0.8 % (0.0-2.0); Eosinophils # (auto) 0.2 10 ^3/uL (0-0.8); Eosinophils % (auto) 2.8 % (0.0-7.0); Hematocrit 43.2 % (41.0-53.0); Hemoglobin 14.9 g/dL (13.5-17.5); Lymphocytes # (auto) 2.4 10 ^3/uL (0.4-5.4); Lymphocytes % (auto) 42.3 % (10.0-50.0); Mean Corpuscular Hemoglobin 33.2 pg (28.0-32.0); Mean Corpuscular Hgb Conc. 34.5 g/dL (32.0-36.0); Mean Corpuscular Volume 96.1 fL (80.0-100.0); Monocytes # (auto) 0.4 10 ^3/uL (0-1.3); Monocytes % (auto) 7.6 % (0.0-12.0); Neutrophils # (auto) 2.6 10 ^3/uL (1.6-8.6); Neutrophils % (auto) 46.5 % (37.0-80.0); Red Cell Distribution Width 13.4 % (11.8-14.3); White Blood Cell 5.7 10^3/uL (4.4-10.8)
[2024-04-25 22:38] LABS: Chloride 103 mmol/L (98-107); Potassium 4.1 mmol/L (3.5-5.1); Sodium 137 mmol/L (136-145)
[2024-04-25 22:39] LABS: Anion Gap 8 (5-15); Calcium 10.1 mg/dL (8.7-10.4); Carbon Dioxide 26 mmol/L (20-30)
[2024-04-25 22:44] LABS: Blood Urea Nitrogen 9 mg/dL (9-23); Glucose 133 mg/dL (74-106)
[2024-04-25 22:45] LABS: Blood Alcohol 207.5 mg/dL (<10)
[2024-04-25] MEDS: IOHEXOL 300 MG/ML 100ML BOTTLE IJ ONE (23:21)
[2024-04-26 00:20] VITALS: BP 164/90; TEMP 99
[2024-04-26 00:26] LABS: Urine Bacteria None Seen /hpf (None Seen); Urine WBC None Seen /hpf (0 - 3)
[2024-04-26 00:36] VITALS: PULSE 98; RESP 18; O2SAT 100
[2024-04-26 00:37] LABS: Urine Blood Negative /uL (Negative); Urine Clarity Clear (Clear); Urine Protein, UAD Negative (Negative); Urine Specific Gravity 1.005 (1.001-1.035); Urine Urobilinogen Normal (Negative)
[2024-04-26 00:39] LABS: Urine Color STRAW (Yellow)
[2024-04-26 01:30] LABS: Amphetamine Screen, Urine Neg (NEGATIVE)
[2024-04-26 01:31] LABS: Barbiturate Scree,Urine Neg (NEGATIVE); Benzodiazephine Screen, Urine Neg (NEGATIVE); Cannabinoid Screen, Urine Pos (NEGATIVE); Cocaine Screen, Urine Neg (NEGATIVE); Opiate Scree,Urine Neg (NEGATIVE); Phencyclidine Screen, Urine Neg (NEGATIVE)
== END 2024-04-26 03:45 | disposition home or self-care (01) ==
LOC: ER 21:47 → EDBD 21:47 → ER 04-26 03:45
DX: F10.129 Alcohol abuse with intoxication, unspecified (principal); M54.50 Low back pain, unspecified; M54.2 Cervicalgia; R42 Dizziness and giddiness; I11.0 Hypertensive heart disease with heart failure; I50.9 Heart failure, unspecified; E11.9 Type 2 diabetes mellitus without complications; E78.5 Hyperlipidemia, unspecified; I48.91 Unspecified atrial fibrillation; M19.90 Unspecified osteoarthritis, unspecified site; F17.210 Nicotine dependence, cigarettes, uncomplicated; F15.90 Other stimulant use, unspecified, uncomplicated; Z98.890 Other specified postprocedural states; Z79.899 Other long term (current) drug therapy; W01.198A Fall on same level from slipping, tripping and stumbling with subsequent striking against other object, initial encounter; Y93.89 Activity, other specified; Y92.89 Other specified places as the place of occurrence of the external cause; Y99.8 Other external cause status; Y90.0 Blood alcohol level of less than 20 mg/100 ml
CPT/HCPCS: 36415; 70450; 71260; 72125; 74177; 80048; 80307; 80320; 81001; 84484; 85025; 93005; 99285; Q9967

== ENCOUNTER 2024-06-06 02:57 | Emergency (ER) | payer MEDICAID ==
[~2024-06-06] VITALS: Ht 185.4 cm; Wt 77.0 kg
[~2024-06-06 02:57] MED LIST changes: -TAMS0.4C36 PO; +TAMS0.4C39 PO
[2024-06-06 03:20] VITALS: O2SAT 98
[2024-06-06] MEDS: SODIUM CHLORIDE 0.9% 1,000 ML IV ONE ×2 (05:34→07:09)
[2024-06-06] MEDS: ONDANSETRON HCL 4 MG/2 ML VIAL IV ONE (05:35)
[2024-06-06 06:02] LABS: Basophils # (auto) 0 10 ^3/uL (0-0.2); Basophils % (auto) 0.2 % (0.0-2.0); Eosinophils # (auto) 0 10 ^3/uL (0-0.8); Eosinophils % (auto) 0.1 % (0.0-7.0); Hematocrit 43.1 % (41.0-53.0); Hemoglobin 15.1 g/dL (13.5-17.5); Lymphocytes # (auto) 0.9 10 ^3/uL (0.4-5.4); Lymphocytes % (auto) 11.3 % (10.0-50.0); Mean Corpuscular Hemoglobin 33.8 pg (28.0-32.0); Mean Corpuscular Hgb Conc. 35.1 g/dL (32.0-36.0); Mean Corpuscular Volume 96.3 fL (80.0-100.0); Monocytes # (auto) 0.3 10 ^3/uL (0-1.3); Monocytes % (auto) 4.1 % (0.0-12.0); Neutrophils # (auto) 6.5 10 ^3/uL (1.6-8.6); Neutrophils % (auto) 84.3 % (37.0-80.0); Nucleated Red Blood Cells % 0.1 %; Platelet Count (auto) 357 10^3/uL (140-450); Red Blood Cells 4.48 10^6/uL (4.5-5.90); Red Cell Distribution Width 13.5 % (11.8-14.3); White Blood Cell 7.7 10^3/uL (4.4-10.8)
[2024-06-06 06:17] LABS: Alanine Aminotransferase 26 U/L (7-40); Albumin 4.6 g/dL (3.2-4.8); Alkaline Phosphatase 76 U/L (46-116); Anion Gap 12 (5-15); Aspartate Aminotransferase 26 U/L (13-40); BUN/Creatinine Ratio 5.4 (10.0-20.0); Bilirubin, Total 1.1 mg/dL (0.2-1.0); Blood Urea Nitrogen 6 mg/dL (9-23); Calcium 10.1 mg/dL (8.7-10.4); Carbon Dioxide 24 mmol/L (20-30); Chloride 101 mmol/L (98-107); Glucose 158 mg/dL (74-106); Potassium 3.5 mmol/L (3.5-5.1); Sodium 137 mmol/L (136-145); Total Protein 7.8 g/dL (5.7-8.2)
[2024-06-06 06:19] LABS: INR 1.05 (0.9-1.15); Partial Thromboplastin Time 24.8 SEC (24.5-34.5); Prothrombin Time 11.1 sec (9.3-11.8)
[2024-06-06] MEDS ORDERED: ZOFR4T PO (07:03)
[2024-06-06 07:30] VITALS: PULSE 112; RESP 14; TEMP 98.5; O2SAT 96
[2024-06-06 08:48] VITALS: BP 167/91; PULSE 99; RESP 18; O2SAT 97
== END 2024-06-06 08:48 | disposition home or self-care (01) ==
LOC: ER 02:57 → EDBD 02:57 → EDSEX 02:57 → ER 08:48
DX: K52.9 Noninfective gastroenteritis and colitis, unspecified (principal); I11.0 Hypertensive heart disease with heart failure; I50.9 Heart failure, unspecified; I48.91 Unspecified atrial fibrillation; E11.9 Type 2 diabetes mellitus without complications; M11.9 Crystal arthropathy, unspecified; F17.210 Nicotine dependence, cigarettes, uncomplicated; F10.90 Alcohol use, unspecified, uncomplicated; F15.90 Other stimulant use, unspecified, uncomplicated; Z98.890 Other specified postprocedural states; Z79.899 Other long term (current) drug therapy; Y90.0 Blood alcohol level of less than 20 mg/100 ml
CPT/HCPCS: 36415; 71045; 74176; 80053; 83605; 83690; 83880; 84484; 85025; 85610; 85730; 93005; 96361; 96374; 99285; J2405; J7030

== ENCOUNTER 2024-10-24 09:49 | Emergency (ER) | payer MEDICAID ==
[~2024-10-24] VITALS: Ht 185.4 cm; Wt 73.7 kg
[~2024-10-24 09:49] MED LIST changes: +ZOFR4T PO
[2024-10-24 10:12] VITALS: BP 144/82; PULSE 100; RESP 18; TEMP 97.2; O2SAT 99
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
--- NOTE | 2024-10-24 10:37 | DVH ---
CLINICAL INDICATION: trauma TECHNIQUE: 2 radiographic views of the left shoulder were obtained. Comparison: None FINDINGS/IMPRESSION: There is no evidence of acute fracture or dislocation. The visualized joint space is well maintained. The alignment is anatomical. There is no radiopaque foreign body.
== END 2024-10-24 10:33 | disposition home or self-care (01) ==
LOC: ER 09:49
DX: S46.912A Strain of unspecified muscle, fascia and tendon at shoulder and upper arm level, left arm, initial encounter (principal); I11.0 Hypertensive heart disease with heart failure; I50.9 Heart failure, unspecified; E11.9 Type 2 diabetes mellitus without complications; F17.210 Nicotine dependence, cigarettes, uncomplicated; I48.91 Unspecified atrial fibrillation; Z79.82 Long term (current) use of aspirin; Z79.84 Long term (current) use of oral hypoglycemic drugs; Z79.899 Other long term (current) drug therapy; Z90.49 Acquired absence of other specified parts of digestive tract; Z98.890 Other specified postprocedural states; W00.0XXA Fall on same level due to ice and snow, initial encounter; Y93.89 Activity, other specified; Y92.89 Other specified places as the place of occurrence of the external cause; Y99.8 Other external cause status
CPT/HCPCS: 73030

== ENCOUNTER 2025-05-24 20:46 | Emergency (ER) | payer MEDICAID ==
[~2025-05-24] VITALS: Ht 182.9 cm; Wt 77.3 kg
[2025-05-24 21:00] VITALS: BP 120/73; PULSE 81; RESP 16; TEMP 98.2; O2SAT 98
--- NOTE | 2025-05-25 07:10 | ECG ---
[facility] Test Date: 2025-05-24 Test Time: 20:50:02 Pat Name: KYLEE JACOME Department: Room: Gender: M Clinical Data Assistant: MARY : 1960 Requested By: EMERGENCY EMERGENCY Order Number: [id number] Reading MD: Nick Zabala Measurements Intervals [place] Rate: 85 P: 63 NE: 159 QRS: 40 QRSD: 106 T: 41 QT: 421 QTc: 501 Interpretive Statements Sinus rhythm Prolonged QT interval Electronically Signed On 05-25-2025 17:57:32 PDT by Nick Zabala Please click the below link to view image of tracing.
[2025-05-25] MEDS ORDERED: HYDR-4902 PO (19:46)
== END 2025-05-24 22:14 | disposition left against medical advice (07) ==
LOC: ER 20:46 → EDBD 20:46 → ER 22:14
DX: R55 Syncope and collapse (principal); Z53.21 Procedure and treatment not carried out due to patient leaving prior to being seen by health care provider
CPT/HCPCS: 82947; 93005

== ENCOUNTER 2025-05-25 15:54 | Emergency (ER) | payer MEDICAID ==
[~2025-05-25] VITALS: Ht 180.3 cm; Wt 70.0 kg
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
--- NOTE | 2025-05-25 18:57 | DVH ---
EXAM: XY LUMBAR SPINE 3 VIEW INDICATION: right leg pain TECHNIQUE: 3 views of the lumbar spine COMPARISON: None FINDINGS/IMPRESSION: No radiographic evidence of an acute osseous abnormality. There is no acute fracture, osseous malalig nment, or aggressive focal osseous lesion. Relative bony foraminal narrowing at L3-L4, L4-L5, and L5- S1. Vascular calcifications. Minimal anterior superior endplate wedging without retropulsion of T11 a nd T12, likely chronic.
[2025-05-25] MEDS ORDERED: HYDR-4902 PO (19:46)
[2025-05-25 20:05] VITALS: RESP 20; O2SAT 95
[2025-05-25 20:10] VITALS: BP 125/60; PULSE 85; RESP 20; TEMP 98.3; O2SAT 95
[2025-05-25] MEDS: HYDROcodone-ACET 5/325MG TAB PO ONE (20:11)
== END 2025-05-25 20:10 | disposition home or self-care (01) ==
LOC: EDBD 15:54 → EDUNIT# 15:54 → ER 15:54
DX: M54.31 Sciatica, right side (principal); I11.0 Hypertensive heart disease with heart failure; I50.9 Heart failure, unspecified; E11.9 Type 2 diabetes mellitus without complications; F17.210 Nicotine dependence, cigarettes, uncomplicated; F12.90 Cannabis use, unspecified, uncomplicated; F10.90 Alcohol use, unspecified, uncomplicated; E78.5 Hyperlipidemia, unspecified; Z79.899 Other long term (current) drug therapy; Z79.84 Long term (current) use of oral hypoglycemic drugs; Z90.49 Acquired absence of other specified parts of digestive tract; Z90.89 Acquired absence of other organs; Z79.82 Long term (current) use of aspirin; Y90.9 Presence of alcohol in blood, level not specified
CPT/HCPCS: 72100

== ENCOUNTER 2025-05-26 18:41 | Emergency (ER) | payer MEDICAID ==
[~2025-05-26] VITALS: Ht 177.8 cm; Wt 77.0 kg
[~2025-05-26 18:41] MED LIST changes: +HYDR-4902 PO
--- NOTE | 2025-05-26 20:26 | ED.PDOC ---
Musculoskeletal HPI Comments This is a 64 year-old male, with a PMHX of CHF, DM, HTN, and High Lipids, presents to the ED via EMS with a chief complaint of spontaneous right foot pain with associated numbness as of X3 days ago. Patient states R foot pain radiates up R leg to R hip. Patient states he was seen in the ED yesterday for the same symptoms, was discharged with pain medications for diagnosed Sciatica, but notes no alleviating factors. Patient reports taking insulin and other medications regularly as prescribed. Patient denies chills, fever, N/V/D, SOB, CP. Denies any other associated symptom's, modifiers, or recent injuries or sick contact at this time. Chief Complaint: Lower Extremity Time Seen by MD: 20:30 Primary Care Provider: KONRAD Reviewed Notes: Nurses Notes, Medications, Allergies Allergies: Coded Allergies: NO KNOWN ALLERGIES (Unverified , 04/19/13) Home Meds Active Scripts Hydrocodone-Acetaminophen (Hydrocodone Bitartrate/AC 5-325 mg) 1 Tab Tab, 1 TAB PO Q8HP PRN, #14 TAB Prov:BERT RIOS MD 05/25/25 Ondansetron Odt 4MG Tab (ZOFRAN PO) 4 Mg Tb, 4 MG PO TID for 7 Days, #21 TAB ODT TAB-DISSOLVE IN MOUTH, THEN SWALLOW Prov:ROMARIO RAMIRES MD 06/06/24 Meclizine HCl (Antivert) 25 Mg Chw, 25 MG PO QID PRN for 5 Days, #20 TAB.CHEW Prov:JAZZMINE PIERRE MD 11/15/23 Meloxicam (Mobic) 7.5 Mg Tab, 7.5 MG PO BID for 15 Days, #30 TAB Prov:DAVON PENNINGTON 10/02/21 Spironolactone (Aldactone) 25 Mg Tab, 1 TAB PO QPM, #90 TAB 1 Refill Prov:FATOU AANYA MD 01/17/20 Furosemide (Lasix) 40 Mg Tab, 40 MG PO DAILY, #30 MG Prov:FATOU ANAYA MD 01/17/20 Carvedilol (COREG) 3.125 Mg Tab, 6.25 MG PO Q12HR, #60 TAB Prov:FATOU ANAYA MD 01/17/20 Potassium Chloride (Potassium Chloride ER) 10 Meq Tab, 10 MEQ PO DAILY, #30 MG Prov:YOSELIN BACA MD 12/06/19 Simvastatin (Simvastatin) 40 Mg Tab, 40 MG PO QHSP PRN for 30 Days, #30 TAB Prov:YOSELIN BACA MD 12/06/19 Enalapril Maleate (Enalapril Maleate) 10 Mg Tab, 10 MG PO DAILY, #30 TAB Prov:YOSELIN BACA MD 12/06/19 Reported Medications Aspirin (Aspir-Low Ec) 81 Mg Tb, 81 MG PO DAILY for 30 Days, MG 12/05/19 Tamsulosin Hcl (Tamsulosin Hcl) 0.4 Mg Cap, 0.4 MG PO QPM for 30 Days, MG 12/05/19 Cholecalciferol (VITAMIN D3) 2,000 Unit Tab, 35608 UNIT OR weekly, TAB 12/05/19 Oxycodone W/ Acetaminophen (Percocet 5/325MG) 1 Tab Tb, 1 TAB PO QID, #120 TAB 12/05/19 Gabapentin (Gabapentin) 300 Mg Cap, 300 MG PO for 30 Days, MG 12/05/19 Metformin Hydrochloride (METFORMIN HCL ER) 1,000 Mg Tab, 1 BID 04/19/13 Information Source: Patient Mode of Arrival: EMS Location: Right Extremity Location: Foot Timing: Days Prehospital treatment: None Severity: Moderate Pain: Moderate Onset of Symptoms: Spontaneous Symptoms: Pain DVT Risk Factors: NONE Associated signs and symptoms: Numbness (R foot ), Foot pain Past Medical History PAST MEDICAL HISTORY: CHF, DM, High Lipids, HTN Surgical History: Appendectomy, Tonsillectomy Family History Family History: Reviewed,noncontributory to illness, Family hx of DM, Family hx of HTN Social History Smoker: Cigarettes, Less Than 1 Pack/Day, Other Alcohol: Rarely Drugs: Marijuana Lives In: Home Constitutional: denies: chills, diaphoresis, fatigue, fever, malaise, sweats, weakness, others EENTM: denies: blurred vision, double vision, ear bleeding, ear discharge, ear drainage, ear pain, ear ringing, eye pain, eye redness, hearing loss, mouth pain, mouth swelling, nasal discharge, nose bleeding, nose congestion, nose pain, photophobia, tearing, throat pain, throat swelling, voice changes, others Respiratory: denies: cough, hemoptysis, orthopnea, SOB at rest, shortness of breath, SOB with excertion, stridor, wheezing, others Cardiovascular: denies: chest pain, dizzy spells, diaphoresis, Dyspnea on exertion, edema, irregular heart beat, left arm pain, lightheadedness, palp itations, PND, syncope, others Gastrointestinal: denies: abdomen distended, abdominal pain, blood streaked bowels, constipated, diarrhea, dysphagia, difficulty swallowing, hematemesis, melena, nausea, poor appetite, poor fluid intake, rectal bleeding, rectal pain, vomiting, others Genitourinary: denies: burning, dysuria, flank pain, frequency, hematuria, incontinence, penile discharge, penile sore, pain, testicle pain, testicle swelling, urgency, others Neurological: reports: numbness (R foot ); denies: dizziness, fainting, headache, left sided numbness, left sided weakness, paresthesia, pre-existing deficit, right sided numbness, right sided weakness, seizure, speech problems, tingling, tremors, weakness, others Musculoskeletal: reports: others (R foot pain ); denies: back pain, gout, joint pain, joint swelling, muscle pain, muscle stiffness, neck pain Integumetry: denies: bruises, change in color, change in hair/nails, dryness, laceration, lesions, lumps, rash, wounds, others Allergic/Immunocompromised: denies: Difficulty Healing, Frequent Infections, Hives, Itching, others Hematologic/Lymphatic: denies: anemia, blood clots, easy bleeding, easy bruising, swollen glands, others Endocrine: denies: excessive hunger, excessive sweating, excessive thirst, excessive urination, flushing, intolerance to cold, intolerance to heat, unexplained weight gain, unexplained weight loss, others Psychiatric: denies: anxiety, bipolar disorder, depression, hopeless, panic disorder, schizophrenia, sleepless, suicidal, others All Other Systems: Reviewed and Negative Physical Exam General Appearance: No Apparent Distress, Normal HEENT: Normal ENT Inspection, Pharynx Normal Neck: Full Range of Motion, Non-Tender Respiratory: Lungs Clear, No Respiratory Distress, Normal Breath Sounds Cardiovascular: No Edema, No JVD, No Murmur, No Gallop, Normal Peripheral Pulses, Regular Rate/Rhythm Breast Exam: Deferred Gastrointestinal: No Organomegaly, Non Tender, No Pulsatile Mass, Normal Bowel Sounds, Soft Genitalia: Deferred Pelvic: Deferred Rectal: Deferred Extremities: No calf tenderness, Normal capillary refill, Normal range of motion, No pedal edema Musculoskeletal : Location: Bilateral Extremity Location: Back (Moderate tenderness on palpation over L3-L5 lumbar spine no noted crepitus or step-offs. Positive straight leg right side. No saddle numbness on palpation. 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 Was a procedure done?: No Differential Diagnosis EXT Differential Diagnosis: Fracture, Sprain, Dislocation, Strain X-Ray, Labs, Meds, VS Vital Signs Date Time Temp Pulse Resp B/P (MAP) Pulse Ox O2 Delivery O2 Flow Rate FiO2 05/26/25 23:13 98.7 84 16 114/68 (83) 98 98.7 05/26/25 21:45 85 16 97 Room Air 05/26/25 21:45 97.9 85 16 123/73 (90) 97 97.9 05/26/25 20:45 85 16 123/73 05/26/25 18:47 98.6 85 12 120/69 95 98.6 X-Ray, Labs, Meds, VS Comment MPRESSION: Mild loss of vertebral body height of L4 of unknown chronicity with chronic appearing fracture of the posterior inferior L4 vertebral body and associated posterior L4 vertebral body sclerosis. MRI would be helpful for further evaluation. Multilevel moderate to severe degenerative changes of the lumbar spine as detailed above. PT REPORTS IMPROVEMENT REQUESTING D/C. ADVISED F/U WITH OUT PT MRI Images Reviewed?: Images reviewed and evaluated by me Time of 1ST Reevaluation: 21:00 Reevaluation 1ST: Unchanged Time of 2ND Reevaluation: 22:59 Reevaluation 2ND: Improved Patient Education/Counseling: Diagnosis, Treatment, Need For Follow Up Family Education/Counseling: No Family Present Medical Screening: No EMC Exist At This Time Departure 1 Departure Time of Disposition: 22:59 Impression: Primary Impression: Lumbar radiculopathy Additional Impression: Closed fracture of lumbar vertebral body Disposition: HOME / SELF CARE / HOMELESS Condition: Stable Additional Instructions: As discussed, follow up with your primary care provider to schedule an outpatient MRI of the lumbar spine questionable acute/chronic L4 vertebral body fracture. Return to the ER for increasing pain, numbness, weakness, loss of bowel or bladder control, saddle anesthesia, footdrop or any concerning symptoms. Discharged With: Spouse Critical Care Note Critical Care Time?: No Stability Stability form required: No Heart Score Heart Score: Heart Score Response (Comments) Value History N/A 0 EKG N/A 0 Age N/A 0 Risk Factors N/A 0 Troponin N/A 0 Total 0 I personally scribed for ER ([email or web address]) on 05/26/25 at 20:26. Electronically submitted by Yumiko Banegas ([email or web address]). I personally scribed for ER ([email or web address]) on 05/26/25 at 20:34. Electronically submitted by Yumiko Banegas ([email or web address]). I personally scribed for ER ([email or web address]) on 05/26/25 at 20:40. Electronically submitted by Yumiko Banegas ([email or web address]). I personally scribed for ER ([email or web address]) on 05/26/25 at 20:44. Electronically submitted by Yumiko Banegas ([email or web address]). ER May 26, 2025 20:26 SELAM DAVIS BROACH [employer] May 26, 2025 23:00
[2025-05-26] MEDS: MORPHINE SULFATE INJ 2 MG/ml SYRG IV ONE (20:45)
--- NOTE | 2025-05-26 21:55 | DVH ---
EXAM: CT LS SPINE WO CONTRAST INDICATION: right foot numbness, low back pain TECHNIQUE: Axial images of the lumbar spine have been obtained along with coronal and sagittal reform atted images. CT scans at this facility use dose modulation, iterative reconstruction, and/or weight based dosing when appropriate to reduce radiation dose to as low as reasonably achievable. COMPARISON: XY LUMBAR SPINE 3 VIEW on DOS: 05/25/25, CERVICAL SPINE LTD on DOS: 10/02/21, CT ABD PELVIS WO CONTRAST on DOS: 12/08/20 Dosage: CTDI 29.34. DLP 1114. FINDINGS: 4 [id number] lumbar-type vertebral with lumbosacral transitional vertebra. Minimal dextroconvex curvature of the lumbar spine with mild straightening of the lumbar lordosis. Minimal loss of vertebr al body height of L4 of unknown chronicity with patchy sclerosis of the posterior inferior L4 vertebr al body. Appearing fracture posterior inferior L4 vertebral body. Anterior bridging osteophytes of T8-T11. T12-L1: No significant spinal canal or neural foramina stenosis. L1-L2. Minimal posterior disc bulge without significant spinal canal. Mild left-sided neural foramin a stenosis. L2-L3: Mild posterior disc bulge with dorsal epidural lipomatosis causing mild spinal canal stenosis with [id number] bilateral neural foramina stenosis. L3-L4: Mild posterior disc osteophyte complex causing mild spinal canal stenosis moderate bilateral n eural foramina stenosis. L4-L5: Posterior disc osteophyte complex without significant spinal canal stenosis. Severe bilateral neural foramina stenosis. L4-L5: No significant spinal canal or neural foramina stenosis. The paraspinal muscles unremarkable. Mild nonspecific bilateral perirenal fat stranding. Multiple 1 cm density within the stomach may repr esent ingested material. Partially visualized Descending colon and Sigmoid diverticulosis without div erticulitis. Heavy atherosclerotic calcification of the aorta and bilateral iliacs. Bilateral lower l obe ground-glass opacities may represent atelectasis infectious/inflammatory process not excluded. IMPRESSION: Mild loss of vertebral body height of L4 of unknown chronicity with chronic appearing fracture of the posterior inferior L4 vertebral body and associated posterior L4 vertebral body sclerosis. MRI would be helpful for further evaluation. Multilevel moderate to severe degenerative changes of the lumbar spine as detailed above.
[2025-05-26 23:13] VITALS: BP 114/68; PULSE 84; RESP 16; TEMP 98.7; O2SAT 98
== END 2025-05-26 23:26 | disposition home or self-care (01) ==
LOC: EDBD 18:41 → ER 18:41
DX: S32.049A Unspecified fracture of fourth lumbar vertebra, initial encounter for closed fracture (principal); M54.16 Radiculopathy, lumbar region; I11.0 Hypertensive heart disease with heart failure; I50.9 Heart failure, unspecified; E11.9 Type 2 diabetes mellitus without complications; F17.210 Nicotine dependence, cigarettes, uncomplicated; Z79.82 Long term (current) use of aspirin; Z79.84 Long term (current) use of oral hypoglycemic drugs; Z79.899 Other long term (current) drug therapy; Z90.49 Acquired absence of other specified parts of digestive tract; Z90.89 Acquired absence of other organs; X58.XXXA Exposure to other specified factors, initial encounter; Y93.89 Activity, other specified; Y92.89 Other specified places as the place of occurrence of the external cause; Y99.8 Other external cause status
CPT/HCPCS: 72131; J1100